=== PATIENT | female | born 1970 | race Two or more races ===

== ENCOUNTER 2023-07-06 08:06 | Inpatient (IN) | payer OTHER ==
[~2023-07-06] VITALS: Ht 170.2 cm; Wt 59.0 kg
[2023-07-07] MEDS ORDERED: SYNTHROID50 MCG PO (11:54)
[2023-07-07] MEDS ORDERED: TECFIDERA240 MG PO (11:55)
[2023-07-07] MEDS ORDERED: GABA PO (11:55)
[2023-07-07] MEDS ORDERED: SIMVAST PO (11:56)
[2023-07-07] MEDS ORDERED: VITAMIN D3 PO (11:56)
[2023-07-13] MEDS ORDERED: LEVSIN/SL0.125 MG SL (12:16)
[2023-07-13] MEDS ORDERED: INTESTINEX680 M1 PO (12:16)
== END 2023-07-13 13:34 | disposition home or self-care (01) | DRG 331 ==
LOC: SURG 07-10 09:41 → O/R 07-10 09:41 → SURG 07-10 09:45 → O/R 07-10 12:38 → SURG 07-10 12:45 → O/R 07-10 12:57 → SURG 07-10 13:46 → SURH 07-10 21:32
PROVIDERS: Internal Medicine Geriatric Medicine; ADMIT Surgery; ATTEND Surgery
PROC: 0DTJ4ZZ Resection of Appendix, Percutaneous Endoscopic Approach (ICD-10-PCS; 2023-07-10)
PROC: 0DBH4ZZ Excision of Cecum, Percutaneous Endoscopic Approach (ICD-10-PCS; principal; 2023-07-10 12:45)
DX: D12.0 Benign neoplasm of cecum (principal); D37.3 Neoplasm of uncertain behavior of appendix; D12.1 Benign neoplasm of appendix